=== PATIENT | male | born 1965 | race African-American/Black ===

== ENCOUNTER 2017-03-05 21:36 | Emergency (ER) | payer OTHER ==
[~2017-03-05] VITALS: Ht 177.8 cm; Wt 78.0 kg
[~2017-03-05 21:36] MED LIST: AMOXICILLIN 50500 M1 PO; CYCLOBENZAPRINE5 MG PO; NAPROSYN500 M1 PO; NOHOMEMEDICATIONS; NORCO 5-325 TA1 EACH PO; PENICILLIN VK250 MG PO; PREDNISONE50 MG PO; TRAMADOL 50 MG50 MG PO; VALIUM5 MG PO; ZPAK PO
[2017-03-05] MEDS ORDERED: PREDNISONE 20 M20 MG PO (22:28)
[2017-03-05 22:53] VITALS: BP 180/117
== END 2017-03-05 22:53 | disposition home or self-care (01) ==
LOC: ER 21:36
DX: S29.012A Strain of muscle and tendon of back wall of thorax, initial encounter (principal); I10 Essential (primary) hypertension; F17.210 Nicotine dependence, cigarettes, uncomplicated; X58.XXXA Exposure to other specified factors, initial encounter; Y93.89 Activity, other specified; Y92.89 Other specified places as the place of occurrence of the external cause; Y99.8 Other external cause status

== ENCOUNTER 2017-07-22 09:04 | Emergency (ER) | payer OTHER ==
[~2017-07-22] VITALS: Ht 177.8 cm; Wt 78.0 kg
[~2017-07-22 09:04] MED LIST changes: +PREDNISONE 20 M20 MG PO
== END 2017-07-22 10:05 | disposition home or self-care (01) ==
LOC: ER 09:04
DX: S09.8XXA Other specified injuries of head, initial encounter (principal); I10 Essential (primary) hypertension; F17.210 Nicotine dependence, cigarettes, uncomplicated; W22.8XXA Striking against or struck by other objects, initial encounter; Y93.89 Activity, other specified; Y92.89 Other specified places as the place of occurrence of the external cause; Y99.8 Other external cause status

== ENCOUNTER 2017-07-30 23:20 | Emergency (ER) | payer OTHER ==
[~2017-07-30] VITALS: Ht 177.8 cm; Wt 78.0 kg
[2017-07-30 23:24] VITALS: BP 123/104
[2017-07-30] MEDS ORDERED: NAPROSYN500 MG PO (23:36)
== END 2017-07-31 00:04 | disposition home or self-care (01) ==
LOC: ER 23:20
DX: S60.212A Contusion of left wrist, initial encounter (principal); I10 Essential (primary) hypertension; F17.210 Nicotine dependence, cigarettes, uncomplicated; W22.8XXA Striking against or struck by other objects, initial encounter; Y93.89 Activity, other specified; Y92.89 Other specified places as the place of occurrence of the external cause; Y99.8 Other external cause status

== ENCOUNTER 2021-01-30 16:43 | Emergency (ER) | payer OTHER ==
[~2021-01-30] VITALS: Ht 177.8 cm; Wt 77.1 kg
[~2021-01-30 16:43] MED LIST changes: +NAPROSYN500 MG PO
[2021-01-30] MEDS ORDERED: FLEXERIL PO (20:24)
[2021-01-30] MEDS ORDERED: NORCO5 PO (20:24)
[2021-01-30] MEDS ORDERED: LISINOPRIL20 MG PO (20:24)
[2021-01-30 20:36] VITALS: BP 177/120
--- NOTE | 2021-01-31 07:54 | EKG ---
[address] [email or web address] [address] ELECTROCARDIOGRAM REPORT Name: EARL KIM A Room #: DEP VEENA Bonilla#: [id number] Admission: 01/30/21 Attend Phys: Discharge: 01/30/21 Date of : 65 Report #: [id number] [facility] ED Test Date: 2021-01-30 Test Time: 16:50:49 Pat Name: EARL KIM Department: Room: Gender: [employer] Operator: LORRAINE : 1965 Requested By: Jean Jorge Order Number: [id number] MD: Luis Champion Measurements Intervals [place] Rate: 113 P: 83 VT: 130 QRS: 75 QRSD: 92 T: 46 QT: 323 QTc: 443 Interpretive Statements Sinus tachycardia Probable left atrial enlargement Compared to ECG 10/10/2007 10:29:32 ST (T wave) deviation no longer present Electronically Signed On 01-31-2021 7:54:29 CDT by Luis Champion [email or web address] <ELECTRONICALLY SIGNED> By: Luis Champion MD, [facility] 01/31/21 0754 [id number] 1650 Luis Champion MD, FACC /EPI
== END 2021-01-30 20:39 | disposition home or self-care (01) ==
LOC: ER 16:43
DX: M54.6 Pain in thoracic spine (principal); G89.29 Other chronic pain; R51.9 Headache, unspecified; I10 Essential (primary) hypertension

== ENCOUNTER 2021-05-06 07:26 | Emergency (ER) | payer OTHER ==
[~2021-05-06] VITALS: Ht 177.8 cm; Wt 78.0 kg
[~2021-05-06 07:26] MED LIST changes: +FLEXERIL PO; +LISINOPRIL20 MG PO; +NORCO5 PO
[2021-05-06 07:46] VITALS: BP 174/97
== END 2021-05-06 10:22 | disposition home or self-care (01) ==
LOC: ER 07:26
DX: M62.830 Muscle spasm of back (principal); I10 Essential (primary) hypertension; F17.210 Nicotine dependence, cigarettes, uncomplicated; Z79.899 Other long term (current) drug therapy